=== PATIENT | male | born 1965 | race Two or more races ===

== ENCOUNTER 2018-09-21 10:48 | Outpatient (CLI) | payer OTHER | END 2018-09-21 11:04 | disposition home or self-care (01) | LOC: RAD 10:48 | DX: R05 Cough (principal) ==

== ENCOUNTER 2020-01-14 13:40 | Outpatient (CLI) | payer OTHER | END 2020-01-14 13:53 | disposition home or self-care (01) | LOC: MRI 13:40 | DX: M17.12 Unilateral primary osteoarthritis, left knee (principal) | CPT/HCPCS: 73718 ==